=== PATIENT | female | born 1965 | race Caucasian/White ===

== ENCOUNTER 2016-10-27 | Inpatient (IN) | payer MEDICARE, OTHER ==
--- NOTE | ~2016-10-27 | PN ---
Unit #: [id number] #: [id number] Patient: KACI GOMEZ [id number] [facility] [address] [place] [address] [id number] MR#: [id number] NAME: KACI GOMEZ ROOM: [facility]6 Age: 51 Sex: F Admission Date: 10/27/2016 : 1965 Attending Physician: Ochoa Ortega M.D. Admitting Physician: Ochoa Ortega M.D. Primary Care Physician: Primary Care Physician Sloane RIDDLE PROGRESS NOTES DATE 10/30/2016 DISCUSSION The patient reports to this physician that her mother is "in intensive care" and she is requesting discharge. She remains somewhat labile and has required p.r.n. doses of Thorazine. We will continue to watch the patient on her currently prescribed psychotropic medications but she may be at or near her psychiatric baseline and if she request discharge tomorrow it may need to be ordered. Dictated by... Ochoa Ortega M.D. CB/breanna TD: 10/30/2016 22:25 JOB #: [id number] JANESSA PROGRESS NOTES Page 1 of 1 X Ochoa Ortega MD PROGRESS NOTE
--- NOTE | ~2016-10-27 | PN ---
Unit #: [id number] #: [id number] Patient: KACI GOMEZ [id number] [facility] [address] [place] [address] [id number] I MR#: [id number] NAME: KACI GOMEZ ROOM: [facility] Age: 51 Sex: F Admission Date: 10/27/2016 : 1965 Attending Physician: Ochoa Ortega M.D. Admitting Physician: Ochoa Ortega M.D. Primary Care Physician: Primary Care Physician Sloane RIDDLE PROGRESS NOTES DATE 10/29/2016 DISCUSSION The patient is pleasant and cooperative and compliant with medications and greenwood routine. I have discussed with her today possible referral for residential chemical dependence and dual-diagnosis treatment for which she may qualify. Dictated by... Ochoa Ortega M.D. CB/bzolu TD: 10/29/2016 12:57 JOB #: [id number] JANESSA PROGRESS NOTES Page 1 of 1 X Ochoa Ortega MD X PROGRESS NOTE
--- NOTE | ~2016-10-27 | PN ---
Unit #: [id number] #: [id number] Patient: KACI GOMEZ [id number] [facility] [address] [place] [address] [id number] I MR#: [id number] NAME: KACI GOMEZ ROOM: [facility]6 Age: 51 Sex: F Admission Date: 10/27/2016 : 1965 Attending Physician: Ochoa Ortega M.D. Admitting Physician: Ochoa Ortega M.D. Primary Care Physician: Primary Care Physician Sloane RIDDLE PROGRESS NOTES DATE 10/28/2016 DISCUSSION The patient is a bit groggy today. This physician has learned that she had been taking Seroquel twice daily as opposed to just once daily as this physician had believed. Anyway, we have increased her dose to 300 mg q.a.m. and 600 mg at h.s. but may have "over-titrated" as the patient does appear somewhat groggy today. Dictated by... Ochoa Ortega M.D. CB/rimma TD: 10/28/2016 15:25 JOB #: [id number] JANESSA PROGRESS NOTES Page 1 of 1 X Ochoa Ortega MD X PROGRESS NOTE
--- NOTE | ~2016-10-27 | DS ---
Unit #: [id number] #: [id number] Patient: KACI GOMEZ [id number] [facility] [address] [place] [address] [id number] I MR#: [id number] NAME: KACI GOMEZ. ROOM: [facility] Age: 51 Sex: F Admission Date: 10/27/2016 : 1965 Discharge Date: 10/31/2016 Attending Physician: Ochoa Ortega M.D. Primary Care Physician: No Primary Care Physician DISCHARGE SUMMARY REASON FOR ADMISSION The patient is a 51-year-old white female admitted voicing positive suicidal ideation. HOSPITAL COURSE The patient was admitted to the [address] [place] [address] unit and placed on suicide precautions. She was restarted on previously prescribed medications, including Seroquel 300 mg b.i.d., the dose of which was increased to 300 mg q.a.m. and 600 mg at nighttime. The patient required a one-time dose of IM Geodon after becoming combative with staff on 10/30/2016, but by 10/31/2016 was in brighter spirits and exhibited no signs or symptoms of psychosis. She requested discharge on that date, stating that her mother had been admitted to a local intensive care unit. Discharge was ordered. FINAL DIAGNOSIS Schizoaffective disorder. FOLLOWUP CARE Followup will take placed through the auspices of [facility]. DISCHARGE MEDICATIONS Seroquel 200 mg daily and 400 mg at bedtime for psychosis. PROGNOSIS Considered fair. DIET AND ACTIVITY No dietary or physical restrictions placed on the patient at the time of discharge. Dictated by... Ochoa Ortega M.D. CB/dayami TD: 11/02/2016 13:12 JOB #: [id number] Unit #: [id number] #: [id number] Patient: KACI GOMEZ DISCHARGE SUMMARY Page 1 of 1 X Ochoa Ortega MD X DISCHARGE SUMMARY
--- NOTE | ~2016-10-27 | HP ---
Unit #: [id number] #: [id number] Patient: KACI GOMEZ [id number] [place] [address] [id number] I MR#: [id number] NAME: KACI GOMEZ ROOM: [facility] Age: 51 Sex: F Admission Date: 10/27/2016 : 1965 Attending Physician: Ochoa Ortega M.D. Admitting Physician: Ochoa Ortega M.D. Primary Care Physician: Primary Care Physician No HISTORY AND PHYSICAL HISTORY OF PRESENT ILLNESS The patient is a 51-year-old female admitted to [address] [place] [address] on 10/27/2016 for psychosis. The patient unfortunately would not speak to me to get a accurate history and physical. Some of her information was retrieved from the chart. PAST MEDICAL HISTORY 1. Obesity. 2. Diabetes. 3. Seizure disorder. PAST SURGICAL HISTORY 1. Bilateral tubal ligation. 2. Hysterectomy. 3. Cholecystectomy. 4. Cervical fusion. SOCIAL HISTORY She is unemployed and disabled. She is homeless, smokes one pack of cigarettes daily. FAMILY MEDICAL HISTORY Noncontributory. ALLERGIES Risperidone, Tylenol, Stadol, Benadryl, Haldol, vistaril, Toradol and Zyprexa. CURRENT MEDICATIONS Seroquel REVIEW OF SYSTEMS The patient did not answer questions about review of systems. PHYSICAL EXAM GENERAL: She is awake, alert and oriented in no acute distress. VITAL SIGNS: Temperature 98.1, heart rate 78, respiration 18, blood pressure 113/45. Unable to obtain height and weight due patient refusal. SKIN: Warm and dry without rash or lesion. HEENT: Normocephalic. TMs not viewed. Oral and nasal passages clear. Conjunctivae clear. PERRLA. EOMs intact. NECK: Supple without lymphadenopathy or thyromegaly. HEART: Regular rate and rhythm without murmur. Unit #: [id number] #: [id number] Patient: KACI GOMEZ LUNGS: Clear. ABDOMEN: Soft, nontender. : Not done. EXTREMITIES: No evidence of cyanosis, clubbing or edema. Moves all without focal deficit. NEUROLOGICAL: Grossly within normal limits. Cranial Nerves: II: Visual rodriguez are intact. III, IV AND : Extraocular movements are intact. Pupils are equal, round and reactive to light. V: Facial sensation is grossly normal. VII: Facial movements and expression are normal. VIII: Auditory acuity grossly intact. IX, X: Uvula is midline. Phonation is normal. XI: Patient shrugs shoulders and turns head normally. XII: Tongue protrudes in the midline. Sensory and Motor Function: Sensory and motor sensation is grossly normal. Motor: moves all extremities well. IMPRESSION 1. Psychiatric admission. 2. Nicotine dependence. 3. Obesity. 4. Diabetes. 5. Seizure disorder. RECOMMENDATIONS Psychiatric per psychiatrist. MEDICAL: No contraindication to participate in facility activities. MEDICAL PROGNOSIS Fair. MEDICAL CONDITION Stable. Dictated by... Geovany Clemens/breanna TD: 10/27/2016 23:15 JOB #: [id number] HISTORY AND PHYSICAL Page 1 of 1 X NOHEMI GALVAN APRN X HISTORY AND PHYSICAL
--- NOTE | ~2016-10-27 | PA ---
Unit #: [id number] #: [id number] Patient: KACI GOMEZ [id number] [facility] [address] [place] [address] [id number] MR#: [id number] NAME: KACI GOMEZ. ROOM: [facility]6 Age: 51 Sex: F Admission Date: 10/27/2016 : 1965 Date of Assessment: 10/27/2016 Attending Physician: Ochoa Ortega M.D. Admitting Physician: Ochoa Ortega M.D. Primary Care Physician: Primary Care Physician No PSYCHIATRIC ASSESSMENT IDENTIFYING INFORMATION The patient is a 51-year-old white female admitted to the [address] [place] [address] unit reporting positive suicidal ideation. She states she has not slept in several days. INFORMANT(S) Patient. RELIABILITY Fair. CHIEF COMPLAINT "I haven't slept in 7 days." HISTORY OF PRESENT ILLNESS The patient is a 51-year-old white female admitted in transfer from [facility] where she had presented voicing positive suicidal ideation. The patient reports that she has been homeless for the past month and for the past 7 days has "not slept" and has been "walking from place to place." The patient states that she has been living with her mother and in shelters during this period of time. She was last hospitalized at [facility] approximately 1 month ago and was started on Seroquel at that facility. The patient does state that she has been compliant with the medication. When initially evaluated in the emergency room, the patient was noted to be extremely disorganized in her thinking. She does have a history of methamphetamine abuse but denies abuse for the past month. Her reported plan of suicide was to "walk into traffic." PAST PSYCHIATRIC HISTORY As noted previously, the patient has a history of multiple previous suicide attempts and hospitalizations. She was last hospitalized approximately 1 month ago at [facility]. FAMILY HISTORY Noncontributory. SOCIAL HISTORY The patient is presently homeless. She does have a history of methamphetamine abuse. MEDICAL HISTORY Significant for a history of obesity. Unit #: [id number] #: [id number] Patient: KACI GOMEZ MEDICATION HISTORY Seroquel. ALLERGIES None reported. MENTAL STATUS EXAM At this time, reveals the patient to be an obese white female appearing her stated age. She is in no apparent physical distress at time of examination. She is awake, alert, oriented in all spheres. Her mood is mildly dysphoric. Her affect constricted. Speech is generally relevant and coherent. There are no gross deficits in memory or cognition noted. Intelligence is judged to be in the average range based on fund of knowledge. The patient is cooperative throughout the interview. She currently endorses positive suicidal ideation with a plan to step into traffic. She reports positive auditory hallucinations. She denies any homicidal ideation. Judgement and insight appear to be somewhat impaired. ASSETS AND LIABILITIES Patient's assets to be assessed. Liabilities, homelessness, lack of resources, poor compliance with treatment. DIAGNOSTIC STUDIES LABORATORY DATA: Includes drug screen positive for benzodiazepines and tricyclic antidepressants. ADMITTING DIAGNOSES 1. Bipolar disorder, mixed phase. 2. Obesity. 3. History of methamphetamine use disorder. PSYCHIATRIC PLAN/TREATMENT GOALS The patient remains hospitalized for safety and stabilization. I will go ahead and increase the patient's Seroquel dose to 400 mg at h.s. in hopes of addressing her complaints of poor sleep. The patient will participate in appropriate greenwood and milieu activities. ESTIMATED LENGTH OF STAY Three to five days. Dictated by... Ochoa Ortega M.D. JW/rimma TD: 10/27/2016 15:19 JOB #: [id number] Unit #: [id number] #: [id number] Patient: KACI GOMEZ PSYCHIATRIC ASSESSMENT Page 1 of 1 X Ochoa Ortega MD PSYCHIATRIC ASSESSMENT
[2016-10-28 09:42] LABS: BASOPHIL# 0.1 X10e3 (0-0.3); BASOPHIL% 1.6 % (0-2.5); EOSINOPHIL# 0.4 X10e3 (0-0.7); EOSINOPHIL% 4.2 % (0.0-7.0); HEMATOCRIT 39.8 % (35.0-45.0); HEMOGLOBIN 13.6 gm/dL (12.0-16.0); LYMPHOCYTE# 2.6 X10e3 (1.0-3.5); LYMPHOCYTE% 29.6 % (17.0-45.0); MEAN CELL VOLUME 86.7 FL (83-96); MEAN CORPUSCULAR HEMOGLOBIN 29.6 PG (28-34); MEAN CORPUSCULAR HGB CONC 34.1 g/dL (30-36); MEAN PLATELET VOLUME 8.4 FL (6.5-11.5); MONOCYTE# 0.6 X10e3 (0-1.0); MONOCYTE% 6.5 % (3.0-12.0); NEUTROPHIL# 5.1 X10e3 (1.5-7.1); NEUTROPHIL% 58.1 % (40-75); PLATELET COUNT 189 X10e3 (140-420); RED BLOOD COUNT 4.59 X10e (3.90-5.30); RED CELL DISTRIBUTION WIDTH 13.4 % (11.0-15.5); WHITE BLOOD COUNT 8.9 X10e3 (4.0-10.5)
[2016-10-28 09:43] LABS: DIFF IND NO
[2016-10-28 11:15] LABS: THYROID STIMULATING HORMONE 0.63 uIU/ml (0.34-5.60)
[2016-10-28 11:22] LABS: FREE THYROXIN (T4) 0.86 ng/dL (0.58-1.64)
[2016-10-28 13:21] LABS: ALBUMIN SERUM 3.7 g/dL (3.5-5.0); BILIRUBIN,TOTAL 0.2 mg/dL (0.2-2.0); CALCIUM SERUM 8.8 mg/dL (8.4-10.2); CREATININE SERUM 0.6 mg/dL (0.6-1.4); GLOM FILT RATE Estimated 106.3 mL/min (>60); POTASSIUM 4.2 mmol/L (3.5-5.1); PROTEIN TOTAL SERUM 6.2 g/dL (6.0-8.3)
== END 2016-10-31 14:52 | disposition home or self-care (01) | DRG 885 ==
LOC: P1S 04:52
PROVIDERS: Specialist
DX: F31.9 Bipolar disorder, unspecified (principal); R45.851 Suicidal ideations; R44.0 Auditory hallucinations; E66.9 Obesity, unspecified; E11.9 Type 2 diabetes mellitus without complications; G40.909 Epilepsy, unspecified, not intractable, without status epilepticus; Z98.51 Tubal ligation status; Z90.710 Acquired absence of both cervix and uterus; Z90.49 Acquired absence of other specified parts of digestive tract; Z59.0 Homelessness; F17.210 Nicotine dependence, cigarettes, uncomplicated
CPT/HCPCS: 80053; 84439; 84443; 84703; 85025; J3486

== ENCOUNTER 2016-11-25 17:20 | Inpatient (IN) | payer MEDICARE, OTHER ==
[~2016-11-25] VITALS: Ht 170.2 cm; Wt 102.1 kg
--- NOTE | ~2016-11-25 | HP ---
Unit #: [id number] #: [id number] Patient: KACI GOMEZ [id number] [facility] [address] [place] [address] [id number] I MR#: [id number] NAME: KACI GOMEZ ROOM: [facility] Age: 51 Sex: F Admission Date: 11/25/2016 : 1965 Attending Physician: Ochoa Ortega M.D. Admitting Physician: Ochoa Ortega M.D. Primary Care Physician: Generic Doctor Not In System HISTORY AND PHYSICAL The patient is a 51-year-old female admitted to [address] [place] [address] on 11/25/2016 for hallucinations and suicidal ideations. Patient has had other admissions to this facility for the same. Her most recent admission was on 10/27/2016 where a full history and physical was completed. That history and physical has been reviewed and no changes need to be made. Dictated by... Geovany Clemens/rimma TD: 11/26/2016 16:05 JOB #: [id number] HISTORY AND PHYSICAL Page 1 of 1 X NOHEMI GALVAN APRN HISTORY AND PHYSICAL
--- NOTE | ~2016-11-25 | PA ---
Unit #: [id number] #: [id number] Patient: KACI GOMEZ [id number] [facility] [address] [place] [address] [id number] I MR#: [id number] NAME: KCAI GOMEZ ROOM: P110 Age: 51 Sex: F Admission Date: 11/25/2016 : 1965 Date of Assessment: 11/26/2016 Attending Physician: Ochoa Ortega M.D. Admitting Physician: Ochoa Ortega M.D. Primary Care Physician: Generic Doctor Not In System PSYCHIATRIC ASSESSMENT IDENTIFYING INFORMATION The patient is a 51-year-old white female admitted to the [address] [place] [address] Unit with recurrent auditory hallucinations and suicidal thinking. CHIEF COMPLAINT None given. INFORMANT(S) Patient and chart, reliability poor. HISTORY OF PRESENT ILLNESS The patient is a 51-year-old chronically ill homeless white female last discharged from this facility in late October of this year. She returns complaining of auditory and visual hallucinations as well as episcopal delusionality and suicidal ideation with plan to cut her wrist. The patient reports that she is presently homeless. It is reported that she has been compliant with her medications, but that her Seroquel dose was recently reduced to 300 mg nightly. For more complete history of present illness, please refer to previously dictated notes. PAST PSYCHIATRIC HISTORY Reviewed, no changes. PAST MEDICAL HISTORY Reviewed, no changes. PAST MEDICAL HISTORY Reviewed, no changes. MEDICATIONS Vistaril, Motrin, Zofran, and Seroquel. ALLERGIES Tylenol, butorphanol, Benadryl, Haldol, Toradol, Zyprexa, Risperdal. FAMILY HISTORY Reviewed, no changes. SOCIAL HISTORY Reviewed, no changes. MENTAL STATUS EXAMINATION Examination at this time reveals the patient to be a disheveled morbidly Unit #: [id number] #: [id number] Patient: KACI GOMEZ obese white female appearing stated age. She is dressed in the hospital garb. She is awake, alert, and oriented in all spheres. Her mood is dysphoric, her affect flat. Speech is generally well-coherent. There are no gross deficits in memory or cognition noted. Intelligence is judged to be in the average range based on fund of knowledge. The patient is cooperative throughout the interview. She continues to endorse positive suicidal ideation. She denies homicidal ideation. She reports positive paranoid and episcopal delusional thinking as well as auditory or visual hallucinations. Her judgment and insight appear to be egregiously impaired. ASSETS AND LIABILITIES The patient's assets are to be assessed. Liabilities: Poor compliance with treatment, homelessness, lack of resources. DIAGNOSTIC IMPRESSION 1. Schizoaffective disorder. 2. Morbid obesity. TREATMENT PLAN The patient remains hospitalized for safety and stabilization. We will continue previously prescribed medications with Seroquel having been increased to 600 mg nightly. The patient will participate in appropriate order of milieu activities, and suicide precautions remain in place. ESTIMATED LENGTH OF STAY 5 to 7 days. Dictated by... Ochoa Ortega M.D. Faviola TD: 11/26/2016 12:05 JOB #: [id number] PSYCHIATRIC ASSESSMENT Page 1 of 1 X Ochoa Ortega MD X PSYCHIATRIC ASSESSMENT
--- NOTE | ~2016-11-25 | PN ---
Unit #: [id number] #: [id number] Patient: KACI GOMEZ [id number] [facility] [address] [place] [address] [id number] I MR#: [id number] NAME: KACI GOMEZ ROOM: [facility] Age: 51 Sex: F Admission Date: 11/25/2016 : 1965 Attending Physician: Ochoa Ortega M.D. Admitting Physician: Ochoa Ortega M.D. Primary Care Physician: Gurmeet Doctor Not In System [facility] PROGRESS NOTES DATE 11/27/2016 DISCUSSION The patient is abed resting comfortably. The staff reports no management issues and states that she has been compliant with prescribed medications. Dictated by... Ochoa Ortega M.D. CB/breanna TD: 11/28/2016 00:11 JOB #: [id number] [facility] PROGRESS NOTES Page 1 of 1 X Ochoa Ortega MD X PROGRESS NOTE
--- NOTE | ~2016-11-25 | DS ---
Unit #: [id number] #: [id number] Patient: KACI GOMEZ [id number] [facility] [address] [place] [address] [id number] I MR#: [id number] NAME: KACI GOMEZ ROOM: [facility] Age: 51 Sex: F Admission Date: 11/25/2016 : 1965 Discharge Date: 11/28/2016 Attending Physician: Ochoa Ortega M.D. Primary Care Physician: Generic Doctor Not In System DISCHARGE SUMMARY REASON FOR ADMISSION The patient is a 51-year-old white female, with a history of schizoaffective disorder, admitted with worsening auditory hallucinations. HOSPITAL COURSE The patient was admitted to the [address] [place] [address], and placed on suicide precautions. She was continued on previously prescribed medications with dosage increased of Seroquel to 200 mg q.a.m. and 600 mg at bedtime, the patient's stay in the hospital was otherwise uneventful and she reported reduction in psychotic thinking and on 11/28 requested discharge and it was so ordered. DISCHARGE DIAGNOSES Omaha I Schizoaffective disorder. Omaha II Omaha III Morbid obesity. Omaha IV Omaha V DISPOSITION ON DISCHARGE The patient is discharged on the following medications: 1. Seroquel 300 mg 1 a.m. and 2 h.s. for psychosis 2. Vistaril 50 mg q.6h p.r.n. anxiety 3. Motrin 400 mg q.6h p.r.n. for pain 4. Zofran 4 mg q.6h p.r.n. for nausea and vomiting PROGNOSIS Her prognosis is fair. DIET AND ACTIVITY No dietary or physical restrictions were placed on the patient at the time of discharge. She will follow[facility]. Dictated by... Ochoa Ortega M.D. Unit #: [id number] #: [id number] Patient: KACI GOMEZ JW/theresa TD: 11/30/2016 09:17 JOB #: [id number] DISCHARGE SUMMARY Page 1 of 1 X Ochoa Ortega MD X DISCHARGE SUMMARY
[2016-11-26 12:18] LABS: BILIRUBIN,TOTAL 0.5 mg/dL (0.2-2.0); BUN/CREATININE RATIO 13.33; CALCIUM SERUM 9.4 mg/dL (8.4-10.2); CREATININE SERUM 0.6 mg/dL (0.6-1.4); GLOM FILT RATE Estimated 106.3 mL/min (>60); POTASSIUM 4.6 mmol/L (3.5-5.1); PROTEIN TOTAL SERUM 6.8 g/dL (6.0-8.3)
[2016-11-28 09:45] LABS: BASOPHIL# 0.1 X10e3 (0-0.3); BASOPHIL% 0.7 % (0-2.5); EOSINOPHIL# 0.3 X10e3 (0-0.7); EOSINOPHIL% 3.9 % (0.0-7.0); HEMATOCRIT 42.4 % (35.0-45.0); HEMOGLOBIN 14.5 gm/dL (12.0-16.0); LYMPHOCYTE# 2.4 X10e3 (1.0-3.5); LYMPHOCYTE% 30.5 % (17.0-45.0); MEAN CELL VOLUME 87.9 FL (83-96); MEAN CORPUSCULAR HGB CONC 34.2 g/dL (30-36); MEAN PLATELET VOLUME 8.7 FL (6.5-11.5); MONOCYTE# 0.8 X10e3 (0-1.0); MONOCYTE% 9.9 % (3.0-12.0); NEUTROPHIL# 4.3 X10e3 (1.5-7.1); PLATELET COUNT 173 X10e3 (140-420); RED BLOOD COUNT 4.82 X10e (3.90-5.30); RED CELL DISTRIBUTION WIDTH 13.6 % (11.0-15.5); WHITE BLOOD COUNT 7.8 X10e3 (4.0-10.5)
[2016-11-28 09:49] LABS: DIFF IND NO
== END 2016-11-28 14:45 | disposition home or self-care (01) | DRG 885 ==
LOC: P1S 21:52
PROVIDERS: Specialist
DX: F25.9 Schizoaffective disorder, unspecified (principal); E66.01 Morbid (severe) obesity due to excess calories; R45.851 Suicidal ideations; Z59.0 Homelessness; Z91.19 Patient's noncompliance with other medical treatment and regimen; Z68.35 Body mass index [BMI] 35.0-35.9, adult
CPT/HCPCS: 80053; 85025